=== PATIENT | male | born 1975 | race Two or more races ===

== ENCOUNTER 2025-09-30 12:36 | Emergency (ER) | payer OTHER ==
[~2025-09-30] VITALS: Ht 170.2 cm; Wt 99.8 kg
[2025-09-30] MEDS ORDERED: ACETAMINOPHEN 500 MG GEL..CAP PO ONE (16:15)
[2025-09-30] MEDS ORDERED: LEVALBUTEROL HCL 1.25 MG/3 ML SOLUTION IH SCH (16:15)
[2025-09-30] MEDS ORDERED: IPRATROPIUM BROMIDE 0.5 MG/2.5 ML AMPUL.NEB IH ONE (16:15)
[2025-09-30] MEDS ORDERED: CEFTRIAXONE SODIUM 2,000 MG VIAL IM ONE (16:15)
[2025-09-30] MEDS ORDERED: METHYLPREDNISOLONE SOD SUCC 125 MG VIAL IV ONE (16:15)
[2025-09-30 17:15] LABS: BASO % 0.5 % (0.1-1.2); EOS # 0.04 (0.04-0.54); EOS % 0.3 % (0.7-7.0); LYMPH # 1.97 (1.18-3.74); LYMPH % 13.6 % (19.3-53.1); MEAN PLATELET VOLUME 10.00 fl (9.4-12.4); MONO # 1.23 (0.24-0.82); MONO % 8.5 % (4.7-12.5); NEUT # 11.09 (1.56-6.13); NEUT % 76.8 % (34.0-71.1); RED CELL DISTRIBUTION WIDTH 13.8 % (11.6-14.4)
[2025-09-30 17:20] LABS: ERYTHROCYTE SEDIMENTATION RATE 73 mm/hr (0-20)
[2025-09-30 17:40] LABS: ALT/SGPT 38.0 U/L (12-78); AST/SGOT 29.0 U/L (15-37); BILIRUBIN TOTAL 0.73 mg/dL (0.3-1.2); BUN CREA RATIO 14.0 (7.0-25.0); CREATININE SERUM 1.45 mg/dL (0.70-1.30); GFR 51.11; GLOBULINA 4.0 G/DL (2.4-3.5); GLUCOSE FASTING 109.0 mg/dL (65-100); OSMOLALITY SERUM 281.0 MOSM/KG (275-295)
[2025-09-30 18:26] LABS: COVID-19 AG NEGATIVE (NEGATIVE)
[2025-09-30] MEDS ORDERED: PROAIR RESPICL90 MCG IH (20:24)
[2025-09-30] MEDS ORDERED: ZITHROMAX500 MG PO (20:24)
[2025-09-30] MEDS ORDERED: BENZONATATE100 MG PO (20:24)
[2025-09-30] MEDS ORDERED: ZITHROMAX200 MG PO (20:24)
== END 2025-09-30 20:46 | disposition home or self-care (01) ==
LOC: ER 12:37
DX: B34.9 Viral infection, unspecified (principal); J06.9 Acute upper respiratory infection, unspecified; J40 Bronchitis, not specified as acute or chronic